=== PATIENT | female | born 1950 | race Caucasian/White ===

== ENCOUNTER 2024-01-12 14:29 | Emergency (ER) | payer OTHER ==
[2024-01-12 14:39] VITALS: BP 109/55; PULSE 69; RESP 18; TEMP 98.2; BMI 22.1
== END 2024-01-12 18:21 | disposition home or self-care (01) ==
LOC: JER 14:29
DX: S49.92XA Unspecified injury of left shoulder and upper arm, initial encounter (principal); W01.0XXA Fall on same level from slipping, tripping and stumbling without subsequent striking against object, initial encounter
CPT/HCPCS: 70450-TC; 72125-TC; 73030-TC-LT-FY; 99284-25